=== PATIENT | female | born 1940 | race Caucasian/White ===

== ENCOUNTER 2019-07-23 10:55 | Inpatient (IN) ==
[2019-07-23] MEDS ORDERED: [UNRECOGNIZED DRUG - OTHER] PO SCH (21:00)
[2019-07-23] MEDS ORDERED: IBUPROFEN PO SCH (21:00)
[2019-07-23] MEDS ORDERED: DIPHENHYDRAMINE CIT PO SCH (21:00)
[2019-07-23] MEDS: DilTIAZem CD (24hr) 120 MG CAP.ER.24H PO SCH (21:34)
[2019-07-23] MEDS: Ibuprofen 200 MG TABLET PO SCH (21:34)
[2019-07-23] MEDS: Budesonide/Formoterol 160/4.5 1 PUFF INH IH SCH (22:27)
[2019-07-24] MEDS: *HR* HYDROcodone/Acet 5/325 mg TABLET PO PRN ×2 (06:08→18:34)
[2019-07-24 06:09] LABS: Basophils % 0.2 %; Eosinophils # 0.1 K/mcL (0.0-0.6); Eosinophils % 1.6 %; Hemoglobin 8.3 g/dL (11.5-15.4); Immature Granulocytes % 0.3 % (0-4); Lymphocytes # 1.1 K/mcL (0.6-4.6); Mean Corpuscular HGB Conc 33.2 g/dL (31.6-35.5); Mean Corpuscular Hemoglobin 32.3 pg (28.0-33.3); Mean Corpuscular Volume 97.3 fL (83.0-100.0); Mean Platelet Volume 10.1 fL (9.4-12.4); Monocytes # 1.2 K/mcL (0.0-1.3); Monocytes % 13.9 %; Neutrophils # 6.3 K/mcL (1.6-8.9); Platelet Count 176 K/mcL (140-400); Red Blood Count 2.57 M/mcL (3.82-4.97); Red Cell Distribution Width 13.8 % (11.5-14.5); White Blood Count 8.8 K/mcL (4.3-11.1)
[2019-07-24 06:23] LABS: Calcium 8.2 mg/dL (8.6-10.3); Potassium 3.4 mEq/L (3.5-5.1)
[2019-07-24] MEDS: Budesonide/Formoterol 160/4.5 1 PUFF INH IH SCH ×2 (07:58→20:11)
[2019-07-24] MEDS: Nicotine 14 MG PATCH.TD24 TD SCH (09:08)
[2019-07-24] MEDS: risperiDONE 1 MG TABLET PO SCH (09:08)
[2019-07-24] MEDS: DilTIAZem CD (24hr) 120 MG CAP.ER.24H PO SCH ×2 (09:08→20:07)
[2019-07-24] MEDS: Furosemide 40 MG TABLET PO SCH (09:08)
[2019-07-24] MEDS: *HR* Heparin 5,000 UNIT/ML VIAL SQ SCH (17:01)
[2019-07-24] MEDS: Ibuprofen 200 MG TABLET PO SCH (20:06)
[2019-07-25] MEDS: *HR* Heparin 5,000 UNIT/ML VIAL SQ SCH ×2 (05:11→17:13)
[2019-07-25] MEDS: *HR* HYDROcodone/Acet 5/325 mg TABLET PO PRN ×3 (05:11→17:13)
[2019-07-25] MEDS: Budesonide/Formoterol 160/4.5 1 PUFF INH IH SCH ×2 (08:07→21:45)
[2019-07-25] MEDS: Nicotine 14 MG PATCH.TD24 TD SCH (08:27)
[2019-07-25] MEDS: Furosemide 40 MG TABLET PO SCH (08:28)
[2019-07-25] MEDS: DilTIAZem CD (24hr) 120 MG CAP.ER.24H PO SCH ×2 (08:28→21:43)
[2019-07-25] MEDS: risperiDONE 1 MG TABLET PO SCH (08:28)
[2019-07-25] MEDS: Ibuprofen 200 MG TABLET PO SCH (21:44)
[2019-07-26] MEDS: *HR* HYDROcodone/Acet 5/325 mg TABLET PO PRN ×2 (03:41→22:55)
[2019-07-26] MEDS: *HR* Heparin 5,000 UNIT/ML VIAL SQ SCH ×2 (05:22→18:10)
[2019-07-26 06:46] LABS: Basophils % 0.1 %; Eosinophils # 0.2 K/mcL (0.0-0.6); Eosinophils % 1.6 %; Hematocrit 23.7 % (35.3-44.9); Immature Granulocytes % 0.9 % (0-4); Lymphocytes # 0.9 K/mcL (0.6-4.6); Lymphocytes % 8.6 %; Mean Corpuscular HGB Conc 33.8 g/dL (31.6-35.5); Mean Corpuscular Volume 94.8 fL (83.0-100.0); Mean Platelet Volume 9.7 fL (9.4-12.4); Monocytes # 1.1 K/mcL (0.0-1.3); Monocytes % 11.6 %; Neutrophils # 7.6 K/mcL (1.6-8.9); Nucleated Red Blood Cells 0.2 /100 WBC (0); Platelet Count 220 K/mcL (140-400); Red Cell Distribution Width 13.3 % (11.5-14.5); Segmented Neutrophils % 77.2 %; White Blood Count 9.9 K/mcL (4.3-11.1)
[2019-07-26 07:05] LABS: Calcium 7.9 mg/dL (8.6-10.3); Potassium 3.4 mEq/L (3.5-5.1)
[2019-07-26] MEDS: Budesonide/Formoterol 160/4.5 1 PUFF INH IH SCH ×2 (07:57→23:41)
[2019-07-26] MEDS: risperiDONE 1 MG TABLET PO SCH (09:30)
[2019-07-26] MEDS: DilTIAZem CD (24hr) 120 MG CAP.ER.24H PO SCH ×2 (09:31→22:53)
[2019-07-26] MEDS: Furosemide 40 MG TABLET PO SCH (09:31)
[2019-07-26] MEDS: Nicotine 14 MG PATCH.TD24 TD SCH (09:32)
[2019-07-26] MEDS: Ibuprofen 200 MG TABLET PO SCH (22:54)
[2019-07-27] MEDS: *HR* Heparin 5,000 UNIT/ML VIAL SQ SCH ×2 (05:38→18:15)
[2019-07-27] MEDS: Budesonide/Formoterol 160/4.5 1 PUFF INH IH SCH ×2 (08:28→22:35)
[2019-07-27] MEDS: Furosemide 40 MG TABLET PO SCH (09:53)
[2019-07-27] MEDS: *HR* HYDROcodone/Acet 5/325 mg TABLET PO PRN ×3 (09:53→22:35)
[2019-07-27] MEDS: Nicotine 14 MG PATCH.TD24 TD SCH (09:53)
[2019-07-27] MEDS: DilTIAZem CD (24hr) 120 MG CAP.ER.24H PO SCH ×2 (09:53→22:34)
[2019-07-27] MEDS: risperiDONE 1 MG TABLET PO SCH (09:53)
[2019-07-27] MEDS: Ibuprofen 200 MG TABLET PO SCH (22:33)
[2019-07-27] MEDS: Nystatin Cream 15 GM TUBE TP SCH (22:35)
[2019-07-28] MEDS: *HR* HYDROcodone/Acet 5/325 mg TABLET PO PRN ×2 (06:07→17:14)
[2019-07-28] MEDS: *HR* Heparin 5,000 UNIT/ML VIAL SQ SCH ×2 (06:09→17:14)
[2019-07-28] MEDS: Budesonide/Formoterol 160/4.5 1 PUFF INH IH SCH ×2 (08:18→20:49)
[2019-07-28] MEDS: DilTIAZem CD (24hr) 120 MG CAP.ER.24H PO SCH ×2 (09:35→20:10)
[2019-07-28] MEDS: risperiDONE 1 MG TABLET PO SCH (09:35)
[2019-07-28] MEDS: Nystatin Cream 15 GM TUBE TP SCH ×2 (09:35→20:11)
[2019-07-28] MEDS: Furosemide 40 MG TABLET PO SCH (09:35)
[2019-07-28] MEDS: Nicotine 14 MG PATCH.TD24 TD SCH (09:37)
[2019-07-28] MEDS: Ibuprofen 200 MG TABLET PO SCH (20:10)
[2019-07-29] MEDS: *HR* HYDROcodone/Acet 5/325 mg TABLET PO PRN ×3 (04:27→17:50)
[2019-07-29] MEDS: *HR* Heparin 5,000 UNIT/ML VIAL SQ SCH ×2 (05:52→17:48)
[2019-07-29] MEDS: Budesonide/Formoterol 160/4.5 1 PUFF INH IH SCH ×2 (08:12→21:04)
[2019-07-29] MEDS: risperiDONE 1 MG TABLET PO SCH (09:08)
[2019-07-29] MEDS: DilTIAZem CD (24hr) 120 MG CAP.ER.24H PO SCH ×2 (09:08→19:53)
[2019-07-29] MEDS: Furosemide 40 MG TABLET PO SCH (09:08)
[2019-07-29] MEDS: Nystatin Cream 15 GM TUBE TP SCH ×2 (09:17→19:53)
[2019-07-29] MEDS: Nicotine 14 MG PATCH.TD24 TD SCH (09:18)
[2019-07-29] MEDS: Ibuprofen 200 MG TABLET PO SCH (19:53)
[2019-07-30] MEDS: *HR* HYDROcodone/Acet 5/325 mg TABLET PO PRN ×3 (00:38→12:55)
[2019-07-30 07:05] VITALS: BP 164/71
[2019-07-30] MEDS: *HR* Heparin 5,000 UNIT/ML VIAL SQ SCH (07:33)
[2019-07-30] MEDS: Budesonide/Formoterol 160/4.5 1 PUFF INH IH SCH (08:15)
[2019-07-30] MEDS: DilTIAZem CD (24hr) 120 MG CAP.ER.24H PO SCH (08:59)
[2019-07-30] MEDS: Nicotine 14 MG PATCH.TD24 TD SCH (08:59)
[2019-07-30] MEDS: Furosemide 40 MG TABLET PO SCH (09:00)
[2019-07-30] MEDS: risperiDONE 1 MG TABLET PO SCH (09:00)
[2019-07-30] MEDS: Nystatin Cream 15 GM TUBE TP SCH (09:00)
[2019-07-30] MEDS ORDERED: Gabapentin 100 MG CAPSULE PO SCH (11:15)
== END 2019-07-30 13:31 | DRG 560 ==
LOC: INPGRE 14:28
PROVIDERS: ADMIT Family Medicine; ATTEND Family Medicine